=== PATIENT | male | born 1980 | race Caucasian/White ===

== ENCOUNTER → 2018-10-25 | Outpatient (CLI) | payer BC ==
[2015-05-14 16:30] VITALS: BP 122/63
--- NOTE | 2018-10-25 17:06 | RAD ---
EXAM: Sacrum and coccyx, 3 views. HISTORY: Tailbone pain. COMPARISON: None. FINDINGS: 3 views of the sacrum and coccyx are obtained. There is no fracture, dislocation or subluxation. There is no significant listhesis. The sacroiliac joints are intact. There are few pelvic phleboliths. IMPRESSION: No acute osseous finding. Electronically signed by: Flakita Carter MD (10/25/2018 5:03 PM) [id number]
== END | disposition home or self-care (01) ==
LOC: DXRAD 12:00
PROVIDERS: ATTEND Physician Assistant
DX: S30.0XXA Contusion of lower back and pelvis, initial encounter (principal); I87.8 Other specified disorders of veins; X58.XXXA Exposure to other specified factors, initial encounter; Y93.89 Activity, other specified; Y92.89 Other specified places as the place of occurrence of the external cause; Y99.8 Other external cause status
CPT/HCPCS: 72220

== ENCOUNTER → 2020-10-06 | Outpatient (CLI) | payer BC ==
[2015-05-14 16:30] VITALS: BP 122/63
--- NOTE | 2020-10-06 15:13 | RAD ---
XR LUMBAR SPINE 4+V History: Reason: LOW BACK PAIN, LEFT RADICULOPATHY / Spl. Instructions: / History: Technique: 5 views lumbar spine. Comparison: Sacral radiograph October 25, 2018. Findings: Slight retrolisthesis L5 on S1. Chronic lower thoracic anterior vertebral body wedging. No acute frac ture. Deformity of the right proximal femur, unchanged. Mild degenerative disc changes most prominent L4-5 and L5-S1. Impression: 1. No acute osseous abnormality. 2. Mild lumbar spondylosis most prominent L5-S1. Electronically signed by: Armando Navarro DO (10/06/2020 3:11 PM) [facility]
== END ==
LOC: RAD 14:23
PROVIDERS: ATTEND Physician Assistant
DX: M47.817 Spondylosis without myelopathy or radiculopathy, lumbosacral region (principal); M21.851 Other specified acquired deformities of right thigh
CPT/HCPCS: 72110